=== PATIENT | male | born 1980 | race Caucasian/White ===

== ENCOUNTER 2023-02-21 11:04 | Emergency (ER) | payer OTHER ==
[~2023-02-21] VITALS: Ht 177.8 cm; Wt 90.7 kg
== END 2023-02-21 14:55 | disposition home or self-care (01) ==
LOC: ER 11:04
DX: M54.2 Cervicalgia (principal); M25.512 Pain in left shoulder; E03.9 Hypothyroidism, unspecified; Z88.6 Allergy status to analgesic agent; Z88.0 Allergy status to penicillin